=== PATIENT | female | born 1980 | race African-American/Black ===

== ENCOUNTER → 2017-10-19 | Outpatient (CLI) | payer OTHER ==
[~2017-10-19] MED LIST: CHOL1CAP24 PO; Z.0.NO CURRENT MEDS
[2017-10-19 11:34] LABS: HEMATOCRIT 34.7 % (35.0-46.0); MEAN CORPUSCULAR HEMOGLOBIN 26.8 PG (27.0-34.0); MEAN CORPUSCULAR HGB CONC 32.3 % (32.0-36.0); PLATELET COUNT 288 TH/MM3 (150-450); RED BLOOD COUNT 4.18 MIL/MM3 (4.00-5.30); RED CELL DISTRIBUTION WIDTH 16.3 % (11.6-17.2); REVIEW FLAG FINAL; WHITE BLOOD COUNT 5.8 TH/MM3 (4.0-11.0)
== END ==
LOC: CPRE 10:00
PROVIDERS: ATTEND Obstetrics & Gynecology
DX: Z01.810 Encounter for preprocedural cardiovascular examination (principal); D25.9 Leiomyoma of uterus, unspecified
CPT/HCPCS: 36415; 84703; 85027

== ENCOUNTER 2017-10-25 05:49 | Inpatient (IN) | payer OTHER ==
[~2017-10-25] VITALS: Ht 162.6 cm; Wt 101.4 kg
[2017-10-25] MEDS ORDERED: SODIUM CHLORID 0.9% 500 ML IV PRN (06:15)
[2017-10-25] MEDS ORDERED: ONDANSETRON HCL 4 MG/2 ML VIAL IV PUSH PRN ×2 (06:15→10:30)
[2017-10-25] MEDS ORDERED: METOPROLOL TARTRATE 25 MG TAB PO PRN (06:15)
[2017-10-25] MEDS ORDERED: ceFAZolin 1,000 MG/NS 100 ML IV SCH ×2 (06:15)
[2017-10-25] MEDS ORDERED: LACTATED RINGER'S 1000 ML IV PRN (06:15)
[2017-10-25] MEDS ORDERED: MIDAZOLAM HCL 2 MG/2 ML VIAL IV PRN (06:15)
[2017-10-25] MEDS ORDERED: POVIDONE IODINE 5% (ANTISEPSIS KIT) 4 APPLICATIONS EACH NARE PRN (06:15)
[2017-10-25] MEDS ORDERED: CHLORHEXIDINE GLUCONATE 2 % 1 PACK (2 CLOTHS) TOPICAL PRN (06:15)
[2017-10-25] MEDS ORDERED: VASOPRESSIN 20 UNITS/ML VIAL (IVTITR) ONE (08:23)
--- NOTE | 2017-10-25 10:11 | MP ---
cc: DAVID TO DATE OF SURGERY 10/25/2017 PREOPERATIVE DIAGNOSIS Leiomyomata uteri, menorrhagia. POSTOPERATIVE DIAGNOSIS Leiomyomata uteri, menorrhagia. PROCEDURE Total abdominal hysterectomy, bilateral salpingectomy. SURGEON David To MD ANESTHESIA General ESTIMATED BLOOD LOSS 250 cc COMPLICATIONS None FINDINGS The patient had a uterus that was approximately 20 weeks size with multiple 8-10 cm sized fibroids present. The largest of these were on the anterior and posterior fundus. The fallopian tubes were unremarkable. The ovaries were unremarkable except for a some filmy adhesions around them. The anterior cul-de-sac also had some filmy adhesions on the right side. The upper abdominal organs were normal as far as could be visualized and palpated. DESCRIPTION OF PROCEDURE The patient brought into the operating room and following general anesthesia was placed in the dorsal supine position. A Wilkinson catheter was placed the bladder and the abdomen was prepped and draped. A Pfannenstiel skin incision was made and the abdomen was opened in layers in the usual fashion. The uterus was delivered through the incision and with the uterus out of the abdomen, we were able to clamp, cut and tied off the round ligaments and upper broad ligaments. The bladder peritoneum was partially taken down, but because of the large anterior lower fundal fibroid, we decided to do a myomectomy to improve visualization. We injected a small amount of dilute Pitressin solution around the fibroid and using the Bovie and blunt dissection, removed approximately a 6 x 8 cm fibroid from the anterior wall. This gives give us much better visualization of the bladder and the uterine vessels. We then took down the bladder sharply and skeletonized the uterine vessels on each side. The vessels were clamped, cut and tied off with 0 Vicryl stitch. The cervix was then amputated across the upper portion. We then clamped, cut and tied off the cardinal ligaments and uterosacral ligaments with 0 Vicryl stitch. The cervix was then amputated off of the upper vagina. The vaginal cuff was then closed with a running locking #0 Vicryl stitch incorporating the uterosacral ligaments for vaginal vault support. The pelvis was then irrigated and good hemostasis was noted at all sites. The mesosalpinx on each side was clamped with Madhuri clamps and tied off with 0 Vicryl stitch and the tubes were removed. The pelvis was once more irrigated and again with good hemostasis noted, all instruments and lap sponges were removed. The peritoneum was then closed with 2-0 chromic stitch. Sub-fascial layer was irrigated and good hemostasis was present so the fascia was closed with 0-PDS stitch. The subcutaneous layer had good hemostasis so the skin was closed with roberto. The patient was then taken to the recovery room in good condition with all counts correct and clear urine draining in her Wilkinson catheter. MD JESSICA Rodriguez/ASUNCION /9:52 AM /10:01 AM
[2017-10-25] MEDS ORDERED: KETOROLAC TROMETHAMINE 30 MG/ML (IVP) VIAL ONE (10:13)
[2017-10-25] MEDS ORDERED: MORPHINE SULFATE 30 MG/30 ML PCA ONE (10:14)
[2017-10-25] MEDS: DEXT 5%-NACL 0.45% 1000 ML INJ 1,000 ML IV SCH ×2 (10:27→18:30)
[2017-10-25] MEDS: MORPHINE SULFATE 30 MG/30 ML PCA IV SCH ×2 (10:28→23:59)
[2017-10-25] MEDS ORDERED: DO NOT ADM ANY ANTICOAGULANT DRUGS PRN (10:30)
[2017-10-25] MEDS ORDERED: NALOXONE HCL 0.4 MG/ML AMP IV PUSH PRN (10:30)
[2017-10-25] MEDS ORDERED: KETOROLAC TROMETHAMINE 30 MG/ML (IVP) VIAL IV PUSH ONE (10:30)
[2017-10-25] MEDS ORDERED: diphenhydrAMINE HCL 50 MG/ML VIAL IV PUSH PRN (10:30)
[2017-10-25] MEDS ORDERED: *HYDROmorphone PF 1 MG VIAL PERIprocedural Use ONLY ONE (10:35)
[2017-10-25 11:20] VITALS: BP 142/84; PULSE 86; RESP 16; TEMP 98; O2SAT 100
[2017-10-25] MEDS ORDERED: NEOSTIGMINE 5 MG/5 ML SYRINGE IV PUSH ONE (12:00)
[2017-10-25] MEDS ORDERED: PROPOFOL 200 MG/20 ML AMP IV ONE (12:00)
[2017-10-25] MEDS ORDERED: LIDOCAINE HCL 1% PF 5 ML SYRINGE OTHER ONE (12:00)
[2017-10-25] MEDS ORDERED: PHENYLEPH/NS 1000 MCG/10 ML SYR IV ONE (12:00)
[2017-10-25] MEDS ORDERED: ONDANSETRON HCL 4 MG/2 ML VIAL IV PUSH ONE (12:00)
[2017-10-25] MEDS ORDERED: MIDAZOLAM HCL 2 MG/2 ML VIAL IV ONE (12:00)
[2017-10-25] MEDS ORDERED: ePHEDrine/NS 25 MG/5 ML SYR IV ONE (12:00)
[2017-10-25] MEDS ORDERED: GLYCOPYRROLATE 1 MG/5 ML SYRINGE IV PUSH ONE (12:00)
[2017-10-25] MEDS ORDERED: ROCURONIUM INJ 50 MG/5 ML SYRINGE IV PUSH ONE (12:00)
[2017-10-25 16:20] VITALS: BP 125/82; PULSE 95; RESP 17; TEMP 98; O2SAT 100
[2017-10-25] MEDS: PCA - TOTAL MG MORPHINE DELIVERED PER SHIFT SCH ×2 (18:00→22:30)
[2017-10-25 20:00] VITALS: BP 123/77; PULSE 81; RESP 18; TEMP 98; O2SAT 98
[2017-10-26] VITALS: BP 148/83; PULSE 91; RESP 18; TEMP 98.3; O2SAT 98
[2017-10-26] MEDS: DEXT 5%-NACL 0.45% 1000 ML INJ 1,000 ML IV SCH (01:42)
[2017-10-26 04:00] VITALS: BP 134/74; PULSE 83; RESP 18; TEMP 98.1; O2SAT 97
[2017-10-26] MEDS: PCA - TOTAL MG MORPHINE DELIVERED PER SHIFT SCH (05:45)
[2017-10-26 05:56] LABS: HEMATOCRIT 27.7 % (35.0-46.0); REVIEW FLAG FINAL
[2017-10-26 08:15] VITALS: BP 143/90; PULSE 90; RESP 20; TEMP 98.3
[2017-10-26] MEDS ORDERED: ZOLPIDEM TARTRATE 5 MG TAB PO PRN (10:45)
[2017-10-26] MEDS: oxyCODONE/ACETAMINOPHEN 5 MG/325 MG TAB PO PRN ×3 (11:22→18:49)
[2017-10-26 12:00] VITALS: BP 138/88; PULSE 86; RESP 18; TEMP 98.1
[2017-10-26 15:17] VITALS: BP 152/95; PULSE 86; RESP 20; TEMP 98.2
[2017-10-26 20:01] VITALS: BP 131/79; PULSE 116; RESP 18; TEMP 98.1; O2SAT 97
[2017-10-27] VITALS: BP 128/75; PULSE 102; RESP 17; TEMP 98.4; O2SAT 99
[2017-10-27] MEDS: oxyCODONE/ACETAMINOPHEN 5 MG/325 MG TAB PO PRN ×4 (00:15→12:34)
[2017-10-27 04:08] VITALS: BP 115/74; PULSE 100; RESP 16; TEMP 98.1; O2SAT 99
[2017-10-27 08:07] VITALS: BP 111/72; PULSE 87; RESP 16; TEMP 98.1; O2SAT 97
[2017-10-27 11:29] VITALS: BP 115/79; PULSE 94; RESP 18; TEMP 98.1; O2SAT 98
== END 2017-10-27 13:47 | disposition home or self-care (01) | DRG 743 ==
LOC: HSDI 05:49 → H1EA 11:09
PROVIDERS: ADMIT Obstetrics & Gynecology; ATTEND Obstetrics & Gynecology
PROC: 0UT90ZZ Resection of Uterus, Open Approach (ICD-10-PCS; 2017-10-25)
PROC: 0UTC0ZZ Resection of Cervix, Open Approach (ICD-10-PCS; 2017-10-25)
PROC: 0UB90ZZ Excision of Uterus, Open Approach (ICD-10-PCS; 2017-10-25)
PROC: 0UT70ZZ Resection of Bilateral Fallopian Tubes, Open Approach (ICD-10-PCS; principal; 2017-10-25 07:39)
DX: D25.9 Leiomyoma of uterus, unspecified (principal); N92.0 Excessive and frequent menstruation with regular cycle
CPT/HCPCS: 85014; 85018; 86850; 86900; 86901; 88307; J0690; J1170; J1885; J2250; J2270; J2370; J2405; J2710; J3010; J7120